=== PATIENT | female | born 1960 | race Caucasian/White ===

== ENCOUNTER 2023-02-13 09:06 | Outpatient (CLI) | payer MEDICARE, MEDICAID, SELFPAY ==
--- NOTE | ~2023-02-13 | CT_ITS ---
EXAMINATION: CT abdomen pelvis w con DATE: 02/13/2023 09:42 INDICATION: Right lower quadrant abdominal pain TECHNIQUE: Computed tomography (CT) of the abdomen and pelvis was performed with 100 mL Omnipaque-350 intravenous contrast. Automated exposure control and iterative reconstruction technique were employe d. The dose-length product was 1195.68 mGy-cm. COMPARISON: None FINDINGS: Normal atelectasis at the anterior basilar left lower lobe. Heart size is normal. No pericardial or p leural effusion. Diffuse hepatic steatosis. Cholecystectomy clips the gallbladder fossa. Nonspecific mild splenomegaly measuring 13.5 cm length which may be related to body habitus. Pancreas and right a drenal gland are normal. 6 mm macroscopic fat attenuation left adrenal myelolipoma. Bilateral renal c ysts the largest on the left measuring 6.9 cm bowels including the appendix are normal. Partially dec ompressed bladder, anteverted uterus and bilateral adnexa are unremarkable. No free intraperitoneal g as or fluid. No pathologically enlarged abdominal or pelvic lymphadenopathy. Small fat-containing umb ilical hernia. Mild lumbar levocurvature with moderate spondylosis. IMPRESSION: 1. Normal appendix. No acute intra-abdominal/pelvic process. Reviewed, dictated and finalized at location A.
[2023-02-13 09:34] LABS: Estimated Glomerular Filt Rate > 60
== END 2023-02-13 09:07 | disposition home or self-care (01) ==
PROVIDERS: PCP Internal Medicine; Visit Provider Internal Medicine
DX: R10.31 Right lower quadrant pain (principal)
CPT/HCPCS: 74177; Q9967